=== PATIENT | female | born 1975 | race Caucasian/White ===

== ENCOUNTER 2025-05-27 17:31 | Inpatient (IN) | payer MEDICAID ==
[~2025-05-27] VITALS: Ht 165.1 cm; Wt 108.0 kg
[2025-05-27] MEDS ORDERED: LISI-892 PO (18:20)
[2025-05-27] MEDS ORDERED: METO25 PO (18:20)
[2025-05-27] MEDS ORDERED: PANT-31 PO (18:20)
[2025-05-27] MEDS ORDERED: QUET25TA PO (18:20)
[2025-05-27] MEDS ORDERED: FLUO20SO24 PO (18:20)
[2025-05-27] MEDS ORDERED: CLON-592 PO (18:20)
[2025-05-27] MEDS ORDERED: AMLO-257 PO (18:20)
[2025-05-27 18:23] LABS: PLATELET COUNT (AUTO) 287 K/uL (150-450); RED BLOOD CELL COUNT(AUTO) 4.30 MIL/uL (4.00-5.20); RED CELL DISTRIBUTION WIDTH 13.6 % (11.5-14.5); WHITE BLOOD COUNT (AUTO) 7.9 K/uL (4.5-11.0)
[2025-05-27 18:32] LABS: CALCIUM, TOTAL 8.7 mg/dL (8.8-10.5); CREATININE 0.96 mg/dL (0.60-1.30); GLOMERULAR FILTR. RATE CALC > 60 mL/min (>60); GLUCOSE,RANDOM 89 mg/dL (70-110); SODIUM SERUM 139 mmol/L (136-145); UREA NITROGEN, BLOOD 16 mg/dL (7-18)
[2025-05-27 18:41] LABS: TROPONIN I-HIGH SENSITIVITY 10 ng/L (<51)
[2025-05-27] MEDS ORDERED: FLUO-418 PO (19:50)
[2025-05-27] MEDS ORDERED: 0.9% SODIUM CHLORIDE 10 ML SYRINGE IVP ONE (20:00)
[2025-05-27] MEDS ORDERED: IOHEXOL 350 MG/ML 75 ML VIAL ONE (20:01)
[2025-05-27] MEDS ORDERED: SODIUM CHLORIDE 0.9% 100 ML ONE (20:01)
[2025-05-27] MEDS: ASPIRIN 325 MG TABLET PO ONE (20:20)
[2025-05-27] MEDS: ONDANSETRON HCL 4 MG/2 ML VIAL IVP ONE (20:20)
[2025-05-27] MEDS: NITROGLYCERIN 0.4 MG SUBLINGUAL TABLET #25 SL ONE (20:20)
[2025-05-27] MEDS: ACETAMINOPHEN 500 MG TABLET PO ONE (22:07)
[2025-05-27 22:30] LABS: APPEARANCE,URINE CLEAR (CLEAR); GLUCOSE, URINE (UA) NEGATIVE (NEGATIVE); LEUKOCYTE ESTERASE ,URINE NEGATIVE (NEGATIVE); NITRATE,URINE NEGATIVE (NEGATIVE); OCCULT BLOOD,URINE NEGATIVE (NEGATIVE); SPECIFIC GRAVITIY, URINE 1.031 (1.003-1.030)
[2025-05-28] VITALS (7 sets, daily range): BP systolic 100–121; BP diastolic 67–80; PULSE 46–63; RESP 17–18; TEMP 97.5–98.2; O2SAT 95–98
[2025-05-28 06:27] LABS: PLATELET COUNT (AUTO) 254 K/uL (150-450); RED BLOOD CELL COUNT(AUTO) 4.20 MIL/uL (4.00-5.20); RED CELL DISTRIBUTION WIDTH 13.7 % (11.5-14.5); WHITE BLOOD COUNT (AUTO) 5.9 K/uL (4.5-11.0)
[2025-05-28 07:01] LABS: CALCIUM, TOTAL 8.4 mg/dL (8.8-10.5); CREATININE 0.96 mg/dL (0.60-1.30); GLOMERULAR FILTR. RATE CALC > 60 mL/min (>60); GLUCOSE,RANDOM 108 mg/dL (70-110); SODIUM SERUM 139 mmol/L (136-145); UREA NITROGEN, BLOOD 15 mg/dL (7-18)
[2025-05-28 10:41] LABS: TROPONIN I-HIGH SENSITIVITY 8 ng/L (<51)
[2025-05-29 04:43] VITALS: BP 129/79; PULSE 55; RESP 18; TEMP 97.9; O2SAT 99
[2025-05-29 06:27] LABS: PLATELET COUNT (AUTO) 256 K/uL (150-450); RED BLOOD CELL COUNT(AUTO) 4.27 MIL/uL (4.00-5.20); RED CELL DISTRIBUTION WIDTH 13.5 % (11.5-14.5); WHITE BLOOD COUNT (AUTO) 5.8 K/uL (4.5-11.0)
[2025-05-29 06:30] LABS: CALCIUM, TOTAL 8.6 mg/dL (8.8-10.5); CREATININE 0.76 mg/dL (0.60-1.30); GLOMERULAR FILTR. RATE CALC > 60 mL/min (>60); GLUCOSE,RANDOM 103 mg/dL (70-110); SODIUM SERUM 138 mmol/L (136-145); UREA NITROGEN, BLOOD 11 mg/dL (7-18)
[2025-05-29] MEDS ORDERED: ONDANSETRON HCL 4 MG/2 ML VIAL IVP PRN (07:00)
[2025-05-29] MEDS ORDERED: BISACODYL 10 MG RECTAL RECTAL SUPPOSITORY PR PRN (07:00)
[2025-05-29] MEDS ORDERED: ZOLPIDEM TARTRATE 5 MG TABLET PO PRN (07:00)
[2025-05-29] MEDS ORDERED: IPRATROPIUM BROMIDE 0.5 MG/2.5 ML NEB SOLUTION NEB PRN (07:00)
[2025-05-29] MEDS ORDERED: ALBUTEROL SULFATE 2.5 MG/0.5 ML NEB SOLUTION NEB PRN (07:00)
[2025-05-29] MEDS ORDERED: MAGNESIUM HYDROXIDE SUSPENSION 30 ML UDCUP PO PRN (07:00)
[2025-05-29] MEDS: ACETAMINOPHEN 325 MG TABLET PO PRN (08:09)
[2025-05-29] MEDS: HEPARIN SODIUM,PORCINE 5,000 UNITS/ML VIAL SQ SCH (08:14)
[2025-05-29 08:53] VITALS: BP 148/75; PULSE 61; RESP 18; TEMP 97.5; O2SAT 98
[2025-05-29] MEDS ORDERED: PANTOPRAZOLE SODIUM 40 MG DR TABLET PO SCH (09:00)
[2025-05-29] MEDS: PANTOPRAZOLE SODIUM 40 MG DR TABLET PO SCH (09:04)
[2025-05-29] MEDS ORDERED: SESTAMIBI TC99M/UD ISOTOPE 1 EA INJ INJ ONE ×2 (09:50→13:05)
[2025-05-29] MEDS: REGADENOSON 0.4 MG/5 ML PF SYRINGE IVP ONE (13:37)
[2025-05-29] MEDS: NITROGLYCERIN 0.4 MG SUBLINGUAL TABLET #25 SL PRN (14:24)
[2025-05-29 16:05] VITALS: BP 155/90; PULSE 68; RESP 18; TEMP 97.9; O2SAT 98
[2025-05-29] MEDS ORDERED: REGADENOSON 0.4 MG/5 ML PF SYRINGE IVP ONE (16:24)
[2025-05-29] MEDS: SODIUM CHLORIDE 0.9% 500 ML IV ONE (17:12)
[2025-05-29 20:32] VITALS: BP 150/76; PULSE 62; RESP 18; TEMP 98.1; O2SAT 96
[2025-05-29] MEDS: BUTALBITAL/ACETAMINOPHEN/CAFFEINE 50-325-40 MG TABLET PO ONE (21:13)
[2025-05-29 23:40] VITALS: BP 147/83; PULSE 55; RESP 18; TEMP 97.9; O2SAT 97
[2025-05-30] VITALS (16 sets, daily range): BP systolic 118–167; BP diastolic 72–97; PULSE 55–78; RESP 17–18; TEMP 97.9–98.6; O2SAT 95–98
[2025-05-30 06:53] LABS: PLATELET COUNT (AUTO) 245 K/uL (150-450); RED BLOOD CELL COUNT(AUTO) 4.31 MIL/uL (4.00-5.20); RED CELL DISTRIBUTION WIDTH 13.6 % (11.5-14.5); WHITE BLOOD COUNT (AUTO) 5.3 K/uL (4.5-11.0)
[2025-05-30 06:57] LABS: CALCIUM, TOTAL 8.5 mg/dL (8.8-10.5); CREATININE 0.80 mg/dL (0.60-1.30); GLOMERULAR FILTR. RATE CALC > 60 mL/min (>60); GLUCOSE,RANDOM 101 mg/dL (70-110); SODIUM SERUM 138 mmol/L (136-145); UREA NITROGEN, BLOOD 11 mg/dL (7-18)
[2025-05-30] MEDS ORDERED: VERAPAMIL HCL 2.5 MG/ML 2 ML VIAL ONE (13:29)
[2025-05-30] MEDS ORDERED: NITROGLYCERIN 50 MG/D5% WATER 250 ML ONE (13:30)
[2025-05-30] MEDS ORDERED: HEPARIN SODIUM 1000 UNITS/NS 1,000 ML ONE (13:30)
[2025-05-30] MEDS ORDERED: LIDOCAINE/PF 1% 30 ML VIAL ONE (13:30)
[2025-05-30] MEDS ORDERED: SODIUM BICARBONATE 50 MEQ/50 ML VIAL ONE (13:30)
[2025-05-30] MEDS ORDERED: IOHEXOL 300 MG/ML 100 ML VIAL ONE (13:30)
[2025-05-30] MEDS ORDERED: MIDAZOLAM HCL 2 MG/2 ML VIAL ONE (14:02)
[2025-05-30] MEDS ORDERED: FentaNYL CITRATE PF 100 MCG/2 ML VIAL ONE ×2 (14:02→14:39)
[2025-05-30] MEDS: VERAPAMIL HCL 2.5 MG/ML 2 ML VIAL IARTER ONE (14:27)
[2025-05-30] MEDS: HEPARIN SODIUM,PORCINE 1,000 UNITS/ML 10 ML VIAL IARTER ONE (14:27)
[2025-05-30] MEDS: IOHEXOL 300 MG/ML 100 ML VIAL ICOR ONE (14:27)
[2025-05-30] MEDS: MIDAZOLAM HCL 2 MG/2 ML VIAL IVP ONE ×3 (14:27→14:49)
[2025-05-30] MEDS: NITROGLYCERIN/D5W 50 MG/250 ML IV BOTTLE IARTER ONE (14:28)
[2025-05-30] MEDS: FentaNYL CITRATE PF 100 MCG/2 ML VIAL IVP ONE ×3 (14:28→14:49)
[2025-05-30] MEDS: HEPARIN SODIUM 1000 UNITS/NS 1,000 ML IARTER ONE (14:28)
[2025-05-30] MEDS: HEPARIN SODIUM,PORCINE 1,000 UNITS/ML 10 ML VIAL IVP ONE (14:48)
[2025-05-30] MEDS: IOHEXOL 300 MG/ML 100 ML VIAL IARTER ONE (15:00)
[2025-05-31] VITALS (9 sets, daily range): BP systolic 111–174; BP diastolic 58–105; PULSE 65–78; RESP 18–20; TEMP 97.9–98.4; O2SAT 96–99
[2025-05-31 06:22] LABS: PLATELET COUNT (AUTO) 252 K/uL (150-450); RED BLOOD CELL COUNT(AUTO) 4.16 MIL/uL (4.00-5.20); RED CELL DISTRIBUTION WIDTH 13.7 % (11.5-14.5); WHITE BLOOD COUNT (AUTO) 7.0 K/uL (4.5-11.0)
[2025-05-31 06:43] LABS: CALCIUM, TOTAL 8.5 mg/dL (8.8-10.5); CREATININE 0.87 mg/dL (0.60-1.30); GLOMERULAR FILTR. RATE CALC > 60 mL/min (>60); GLUCOSE,RANDOM 124 mg/dL (70-110); SODIUM SERUM 139 mmol/L (136-145); UREA NITROGEN, BLOOD 15 mg/dL (7-18)
[2025-05-31] MEDS: ASPIRIN 81 MG DR TABLET PO SCH (10:27)
[2025-05-31] MEDS: ATORVASTATIN CALCIUM 40 MG TABLET PO SCH (10:27)
[2025-05-31 10:32] LABS: CHOL/HDL RATIO 5.1 (3.9-5.7); LDL CHOL (CALC.) 126.0 mg/dL (0-130)
[2025-05-31 19:31] LABS: TROPONIN I-HIGH SENSITIVITY 114 ng/L (<51)
[2025-06-01 01:12] VITALS: BP 126/69; PULSE 66; RESP 18; TEMP 98; O2SAT 97
[2025-06-01 04:56] VITALS: BP 137/82; PULSE 68; RESP 18; TEMP 98.6; O2SAT 100
[2025-06-01 06:51] LABS: PLATELET COUNT (AUTO) 237 K/uL (150-450); RED BLOOD CELL COUNT(AUTO) 4.02 MIL/uL (4.00-5.20); RED CELL DISTRIBUTION WIDTH 13.8 % (11.5-14.5); WHITE BLOOD COUNT (AUTO) 5.8 K/uL (4.5-11.0)
[2025-06-01 06:53] LABS: CALCIUM, TOTAL 8.7 mg/dL (8.8-10.5); CREATININE 0.80 mg/dL (0.60-1.30); GLOMERULAR FILTR. RATE CALC > 60 mL/min (>60); GLUCOSE,RANDOM 104 mg/dL (70-110); SODIUM SERUM 139 mmol/L (136-145); UREA NITROGEN, BLOOD 12 mg/dL (7-18)
[2025-06-01 07:13] LABS: TROPONIN I-HIGH SENSITIVITY 98 ng/L (<51)
[2025-06-01 07:58] VITALS: BP 144/93; PULSE 70; RESP 18; TEMP 97.9; O2SAT 98
[2025-06-01 11:44] VITALS: BP 134/83; PULSE 82; RESP 18; TEMP 98.1; O2SAT 98
[2025-06-01 13:00] VITALS: BP 129/77; PULSE 76; RESP 16; O2SAT 99
[2025-06-01 15:35] VITALS: BP 145/84; PULSE 77; RESP 18; TEMP 98.2; O2SAT 99
[2025-06-01 16:51] LABS: GLUCOMETER DEV NAME(LOC) 5S.2E; GLUCOSE,POINT OF CARE 133 MG/DL (70-110)
== END 2025-06-01 17:15 | disposition short-term general hospital (02) | DRG 191 ==
LOC: EMS 17:31 → EDH 22:51 → 5N 05-28 00:30
PROVIDERS: ADMIT Hospitalist; ATTEND Hospitalist
PROC: 3E073KZ Introduction of Other Diagnostic Substance into Coronary Artery, Percutaneous Approach (ICD-10-PCS; 2025-05-29)
PROC: 4A02XM4 Measurement of Cardiac Total Activity, External Approach (ICD-10-PCS; 2025-05-29)
PROC: 4A023N7 Measurement of Cardiac Sampling and Pressure, Left Heart, Percutaneous Approach (ICD-10-PCS; principal; 2025-05-30)
PROC: B2111ZZ Fluoroscopy of Multiple Coronary Arteries using Low Osmolar Contrast (ICD-10-PCS; 2025-05-30)
PROC: B240ZZ3 Ultrasonography of Single Coronary Artery, Intravascular (ICD-10-PCS; 2025-05-30)
DX: I20.0 Unstable angina (principal); E44.0 Moderate protein-calorie malnutrition; E66.9 Obesity, unspecified; I10 Essential (primary) hypertension; G47.30 Sleep apnea, unspecified; R00.1 Bradycardia, unspecified; I95.9 Hypotension, unspecified; R51.9 Headache, unspecified; E78.5 Hyperlipidemia, unspecified; Z90.710 Acquired absence of both cervix and uterus; Z88.5 Allergy status to narcotic agent; Z88.0 Allergy status to penicillin; Z87.891 Personal history of nicotine dependence; Z87.11 Personal history of peptic ulcer disease; Z86.711 Personal history of pulmonary embolism; Z68.39 Body mass index [BMI] 39.0-39.9, adult
CPT/HCPCS: 71045; 71275; 75960; 78452; 80048; 80061; 81003; 82962; 83880; 84439; 84443; 84484; 85025; 85379; 85610; 85730; 93005; 93017; 93306; 96374; 99285; A9500; G0378; J0360; J1644; J2250; J2405; J2785; J3010; J3490; J7040; J7050; Q9967; 36415-L1; 36415-TC; Z7610